=== PATIENT | female | born 1995 | race Two or more races ===

== ENCOUNTER 2020-09-07 20:08 | Emergency (ER) | payer BC, OTHER ==
[~2020-09-07] VITALS: Ht 170.2 cm; Wt 144.4 kg
[~2020-09-07 20:08] MED LIST: ALBU6.7H9 INH; CEPH-357 PO; CEPH500C5 PO; CYCL-394 PO; HYDR1TAB PO; IBUP-1051 PO; IBUP-1984 PO; METR-159 PO; NO HOME MEDS; PRED20TA PO; PSEU-225 PO
[2020-09-07 20:27] VITALS: BP 169/79
== END 2020-09-07 21:45 | disposition left against medical advice (07) ==
LOC: ER 20:09
DX: R00.2 Palpitations (principal); Z53.21 Procedure and treatment not carried out due to patient leaving prior to being seen by health care provider
CPT/HCPCS: 82948; 93005

== ENCOUNTER 2020-10-12 10:36 | Emergency (ER) | payer BC ==
[~2020-10-12] VITALS: Ht 170.2 cm; Wt 118.8 kg
[~2020-10-12 10:36] MED LIST changes: +CEPH-585 PO; -CEPH500C5 PO
[2020-10-12 10:41] VITALS: BP 142/79
== END 2020-10-12 11:25 | disposition home or self-care (01) ==
LOC: ER 10:37
DX: M79.645 Pain in left finger(s) (principal); J45.909 Unspecified asthma, uncomplicated; E11.9 Type 2 diabetes mellitus without complications; F12.90 Cannabis use, unspecified, uncomplicated; F11.90 Opioid use, unspecified, uncomplicated; Z56.0 Unemployment, unspecified; Z79.899 Other long term (current) drug therapy; W49.04XA Ring or other jewelry causing external constriction, initial encounter; Y93.89 Activity, other specified; Y92.89 Other specified places as the place of occurrence of the external cause; Y99.8 Other external cause status
CPT/HCPCS: 99284

== ENCOUNTER 2021-02-09 10:21 | Emergency (ER) | payer BC ==
[~2021-02-09] VITALS: Ht 170.2 cm; Wt 136.0 kg
[2021-02-09 10:42] VITALS: BP 138/66
== END 2021-02-09 13:55 | disposition left against medical advice (07) ==
LOC: ER 10:22
DX: R03.0 Elevated blood-pressure reading, without diagnosis of hypertension (principal); Z53.21 Procedure and treatment not carried out due to patient leaving prior to being seen by health care provider
CPT/HCPCS: 82948

== ENCOUNTER 2025-06-08 00:58 | Emergency (ER) | payer BC, MEDICAID ==
[~2025-06-08] VITALS: Ht 167.6 cm; Wt 136.3 kg
[~2025-06-08 00:58] MED LIST changes: +ALBU6.7H14 INH; -ALBU6.7H9 INH
--- NOTE | 2025-06-08 01:14 | Physician Documentation ---
History of Present Illness ~ Chief Complaint: Medical Clearance Stated Complaint: MED CLEARANCE Time Seen by MD: 01:09 Primary Medical Doctor: dr sherlyn appiah HPI Patient presents to the emergency room for medical clearance to go to retirement. She is sent here for high sugars. She acknowledges that she has high sugars but does not want anything put in her that she has never had before. Tetanus within 5 years?: Yes Medication Reconciliation Allergies: Coded Allergies: No Known Allergies (Unverified , 10/12/20) Scheduled Albuterol Sulfate (Proventil Hfa), 2 PUFFS INH Q6H Cephalexin Monohydrate* (Keflex*), 500 MG PO TID Cephalexin*Monohydrate* (Keflex*), MG PO TID, (Reported) Cyclobenzaprine HCl (Cyclobenzaprine HCl), 10 MG PO TID PRN MUSCLE SPASM Cyclobenzaprine HCl (Cyclobenzaprine HCl), 10 MG PO TID PRN MUSCLE SPASM Hydrocodone/Acetaminophen (Vicodin 5-500 Tablet), 1 TAB PO Q6H Hydrocodone/Acetaminophen (Vicodin 5-500 Tablet), 1 TAB PO Q6H Ibuprofen* (Motrin*), 800 MG PO TID Ibuprofen* (Motrin*), 1-2 TAB PO Q8H Metronidazole* (Flagyl*), 500 MG PO TID Metronidazole* (Flagyl*), 500 MG PO TID, (Reported) Prednisone* (Prednisone*), 40 MG PO DAILY Pseudoephedrine Hcl (Sudafed), 30 MG PO Q6H Miscellaneous Medications Home Med List (No Home Medications), (Reported) Past Medical History Past Medical History: Asthma, Diabetes Past Surgical History: noncontributory Other Past Surgical History: 2 Cysts removed from Ovaries Alcohol Use: None Drug Use: marijuana, heroin Lives with: Family Occupation: unemployed Review of Systems ROS All review of systems negative except as per HPI Physical Exam Vital Signs: Temperature: 98.7, Heart Rate: 78, Respiratory Rate: 14, BP: 179/104, Pulse Oximetry: 98, Weight: 136.300 Physical Exam General: Patient is awake, alert, oriented x4 in no acute distress. Morbidly obese Head: Normocephalic and atraumatic. Eyes: Conjunctival normal. EOMI. PERRL. ENT: Mucous membranes moist. Neck: Supple, trachea is midline. Chest: Clear to auscultation bilaterally without rales, rhonchi, or wheezes. There is no accessory muscle use or retractions. Cardiac: RRR without murmurs, gallops, or rubs. Abd: Soft, nondistended, nontender, with normoactive bowel sounds. No guarding, rebound, or rigidity. Progress Results/Orders Results/Orders Orders - DAVID MENESES MD Istat Chemistry Point Of Care (06/08/25 ) Cult Urine + [address] (06/08/25 02:23) Completed Orders - DAVID MENESES MD Normal Saline 1000ml (0.9% Sodium Chlori (06/08/25 01:15) Cbc/Diff (06/08/25 01:15) Hcg, Ur Ql (06/08/25 01:15) Drug Screen, Urine (06/08/25 01:18) Ua W/Microscopic, Cult If Ind (06/08/25 01:52) BMP (06/08/25 02:48) Osmolality (06/08/25 02:48) Ondansetron Inj. (Zofran 4mg/2ml Vial) (06/08/25 03:55) Insulin Regular, Human (Humulin R 10 Uni (06/08/25 04:05) Medications Received in ER Medications (Trade) Dose Ordered Sig/Nida Route PRN Reason Start Time Stop Time Status Last Admin Dose Admin (0.9% sodium chloride (NS) 1000ml IV soln) 2,000 ml ONCE ONCE IVB 06/08/25 01:15 06/08/25 01:16 DC 06/08/25 01:15 2,000 ML Vital Signs 06/08/25 06/08/25 06/08/25 00:59 01:10 04:03 Temp 98.7 98.7 98.7 Pulse 78 103 115 Resp 14 18 14 B/P (MAP) 179/104 198/105 (136) 144/101 (115) Pulse Ox 98 100 96 Laboratory Tests Test 06/08/25 01:06 06/08/25 01:52 06/08/25 02:09 06/08/25 03:05 Glucometer 467 *H Urine Specimen Description Non-specified Urine Color Straw Urine Clarity Clear Urine pH 6.0 Urine Specific [place] <=1.005 Urine Protein Negative Urine Glucose (UA) >=1000 H Urine Ketones Negative Urine Occult Blood Trace-intact Urine Nitrite Negative Urine Bilirubin Negative Urine Urobilinogen 1.0 Urine Leukocyte Esterase Negative Urine RBC 3-10 Urine WBC 5-10 H Urine Squamous Epithelial Cells Few Urine Bacteria 2+ Urine Mucus Few Urine Yeast Few Urine Culture Indicated Indicated Volume Urine Centrifuged 10 ml Urine HCG, Qualitative Negative Urine Comment Urine Opiates Screen Negative Urine Methadone Screen Negative Urine Fentanyl Screen Negative Urine Barbiturates Screen Negative Urine Phencyclidine Screen Negative Urine Amphetamines Screen Negative Urine Benzodiazepines Screen Negative Urine Cocaine Screen Negative Urine Cannabinoids Screen Negative Drug Screen Comment White Blood Count 8.1 Red Blood Count 5.18 Hemoglobin 15.8 Hematocrit 45.3 H Mean Corpuscular Volume 87.4 Mean Corpuscular Hemoglobin 30.5 Mean Corpuscular Hemoglobin Concent 34.9 Red Cell Distribution Width 14.3 Platelet Count 246 Mean Platelet Volume 9.5 Neutrophils (%) (Auto) 67.5 Lymphocytes (%) (Auto) 25.6 Monocytes (%) (Auto) 5.1 Eosinophils (%) (Auto) 1.2 Basophils (%) (Auto) 0.6 Neutrophils # (Auto) 5.4 Lymphocytes # (Auto) 2.1 Monocytes # (Auto) 0.4 Eosinophils # (Auto) 0.1 Basophils # (Auto) 0.1 CBC Comment Chemistry Comments Sodium Level 136 Potassium Level 4.2 Chloride Level 100 Carbon Dioxide Level 25.6 Anion Gap 10 Blood Urea Nitrogen 13 Creatinine 0.81 Estimated GFR/1.73 m2 82 BUN/Creatinine Ratio 16.0 Glucose Level 415 *H Osmolality 304 H Calcium Level 8.9 Albumin 3.8 Test 06/08/25 03:59 Glucometer 369 H Microbiology Date/Time Source Procedure Growth Status 06/08/25 02:23 Urine Nonspecified Urine Culture - Preliminary Culture received. Resulted Medical Decision Making Additional information obtaine: N/A Findings Patient presents to the emergency room for high sugars and high blood pressure. Differentials include but are not limited to diabetic ketoacidosis, uncontrolled diabetes, hyperosmolar state. Therefore emergent labs indicated. No evidence of end-organ damage and she is not suffering from hypertensive emergency. Patient's blood pressures have that has spontaneously improved. She had that has improved with IV fluids and she is not in hyperosmotic state or diabetic ketoacidosis. Differential Dx:Considerations: Include: Intoxication-Alcohol, Intoxication- Other drug, Personality disorder, Substance abuse disorder, Acute delirium, Closed head injury, Cervical spine injury, Skull fracture, Fracture(s), Abrasion, Contusion, Foreign body, Hematoma, Laceration, Alcohol withdrawl syndrom, Encephalopathy, Hepatitis, Medically stable, Other Departure Disposition: 01 HOME / SELF CARE / HOMELESS Impression: Primary Impression: Uncontrolled diabetes mellitus Condition: Improved Discharge Instructions: Medical Screening Exam Additional Instructions: Patient presents to the emergency room for medical clearance to go to retirement. She had noted hypertension as well as hyperglycemia. Labs were reassuring for no diabetic ketoacidosis. Patient's blood pressure has improved. No evidence of end-organ damage and she is not suffering from hypertensive emergency. Patient's sugars are greatly improved. She is refusing insulin. Although her sugars are not ideal I do not feel she is in any danger and she is medically cleared to go to retirement Referrals: NO PRIMARY CARE PROVIDER (PCP) Signature Scribe Signature: No scribe Attestation: The note accurately reflects work and decisions made by me.David Meneses MD 06/08/25 04:07 DAVID MENESES MD Jun 08, 2025 01:14
[2025-06-08] MEDS: normal saline 1000ML IV soln IVB ONE (01:15)
[2025-06-08 02:14] LABS: LEUKOCYTE ESTERASE ,URINE NEGATIVE (Neg); NITRITES, URINE NEGATIVE (Neg); OCCULT BLOOD,URINE TRACE-INTACT (Neg)
[2025-06-08 02:15] LABS: URINE HCG NEGATIVE (NEG)
[2025-06-08 02:22] LABS: UA COLLECTION TYPE NON-SPECIFIED
[2025-06-08 02:23] LABS: MUCUS STRANDS FEW /LPF (Neg); SQUAMOUS EPITHELIAL CELL,UR FEW /LPF (FEW); YEAST FEW /HPF (NEGATIVE)
[2025-06-08 02:23] LABS: MEAN PLATELET VOLUME 9.5 FL (7.4-10.4); RED CELL DISTRIBUTION WIDTH 14.3 % (11.5-14.5)
[2025-06-08 02:32] LABS: URINE AMPHETAMINE SCREEN NEGATIVE (Neg); URINE BARBITUATE SCREEN NEGATIVE (Neg); URINE BENZODIAZEPINES SCREEN NEGATIVE (Neg); URINE CANNABINOID SCREEN NEGATIVE (Neg); URINE COCAINE SCREEN NEGATIVE (Neg); URINE METHADONE SCREEN NEGATIVE (Neg); URINE OPIATE SCREEN NEGATIVE (Neg); URINE PHENCYCLIDINE SCREEN NEGATIVE (Neg)
[2025-06-08 03:44] LABS: OSMOLALITY 304 MOSM/K (280-300)
[2025-06-08 03:51] LABS: CREATININE 0.81 MG/DL (0.40-0.90); TOTAL CARBON DIOXIDE 25.6 MMOL/L (24-32); eCRCL 94 ML/MIN; eGFR 82 ML/MIN
[2025-06-08] MEDS ORDERED: ondansetron/PF 4mg/2ml inj IV ONE (03:55)
[2025-06-08] MEDS ORDERED: insulin regular, human 10 units/0.1 ml syringe IV ONE (04:05)
[2025-06-08 04:20] VITALS: BP 144/101; PULSE 68; RESP 16; TEMP 98.7; O2SAT 96
== END 2025-06-08 04:22 | disposition home or self-care (01) ==
LOC: ER 00:59
DX: E11.65 Type 2 diabetes mellitus with hyperglycemia (principal); J45.909 Unspecified asthma, uncomplicated; F12.90 Cannabis use, unspecified, uncomplicated; F11.90 Opioid use, unspecified, uncomplicated; Z79.899 Other long term (current) drug therapy
CPT/HCPCS: 36415; 80048; 80305; 81001; 81025; 82948; 83930; 85025; 87077; 87088; 87186; 96360; 99283; J7030